=== PATIENT | male | born 1935 | race Caucasian/White ===

== ENCOUNTER → 2017-05-28 | Outpatient (CLI) | payer MEDICARE, OTHER ==
[~2017-05-28] MED LIST: AMLO5TAB2 PO; ASPI-621 PO; ATOR10TA9 PO; CETI-158 PO; CHOL200024 PO; ENAL20TA PO; FISH1CAP PO; IBUP200C8 PO; METF500T4 PO
[2017-05-28 08:59] LABS: HEMOGLOBIN 13.1 g/dL (13.7-18.0); WHITE BLOOD COUNT 6.4 x10^3/uL (3.4-10)
[2017-05-28 09:09] LABS: BLOOD UREA NITROGEN 22 mg/dL (7-18)
[2017-05-28 09:19] LABS: ASPARTATE AMINO TRANSFERASE 18 U/L (15-37)
[2017-05-28 10:07] LABS: HIV 1&2 ANTIBODY SCREEN Nonreactive (Nonreactive)
[2017-05-28 10:08] LABS: HIV-1 p24 ANTIGEN Nonreactive (Nonreactive)
== END | disposition home or self-care (01) ==
LOC: STAR 07:43
PROVIDERS: ATTEND Orthopaedic Surgery Orthopaedic Surgery of the Spine
DX: Z01.818 Encounter for other preprocedural examination (principal); R94.31 Abnormal electrocardiogram [ECG] [EKG]; M48.02 Spinal stenosis, cervical region; M54.12 Radiculopathy, cervical region; R79.1 Abnormal coagulation profile
CPT/HCPCS: 36415; 71020; 80053; 80074; 81003; 85025; 85610; 85651; 85730; 86703; 87899; 93005; G0435

== ENCOUNTER 2017-06-11 05:23 | Inpatient (IN) | payer MEDICARE, OTHER ==
[2017-05-28 08:12] VITALS: BP 152/76
[~2017-06-11] VITALS: Ht 172.7 cm; Wt 84.9 kg
[2017-06-11] MEDS ORDERED: LACTATED RINGERS 1,000 ML IV SCH (06:10)
[2017-06-11] MEDS ORDERED: LIDOCAINE 1%, 2ML SQ PRN (06:30)
[2017-06-11] MEDS ORDERED: BUPIVACAINE/PF 0.5% ONE (06:46)
[2017-06-11] MEDS ORDERED: THROMBIN 5,000 UNIT VIAL TP ONE (06:47)
[2017-06-11] MEDS ORDERED: EPINEPHRINE 1 MG/ML, 1ML ONE (06:47)
[2017-06-11] MEDS ORDERED: BUPIVACAINE/PF 0.25% ONE (06:47)
[2017-06-11] MEDS ORDERED: BACITRACIN 50,000 UNIT ONE (06:47)
[2017-06-11] MEDS ORDERED: LIDOCAINE/PF 1%, 30ML ONE (06:47)
[2017-06-11] MEDS ORDERED: PROPOFOL 50 ML ONE ×2 (07:13→08:55)
[2017-06-11] MEDS ORDERED: FENTANYL PF 100 MCG/2ML ONE (07:13)
[2017-06-11] MEDS ORDERED: MIDAZOLAM 1 MG/ML, 2ML ONE (07:13)
[2017-06-11] MEDS ORDERED: REMIFENTANIL 2 MG ONE (07:16)
[2017-06-11] MEDS ORDERED: CEFAZOLIN 1,000 MG ONE (08:55)
[2017-06-11] MEDS ORDERED: ONDANSETRON 2MG/ML, 2ML ONE (08:55)
[2017-06-11] MEDS ORDERED: PROPOFOL 10 MG/ML, 20ML ONE (08:55)
[2017-06-11] MEDS ORDERED: ROCURONIUM 10 MG/ML,10ML ONE (08:55)
[2017-06-11] MEDS ORDERED: DEXAMETHASONE 4 MG/ML, 1ML ONE (08:55)
[2017-06-11] MEDS ORDERED: SUCCINYLCHOLINE 20 MG/ML, 10ML ONE (08:55)
[2017-06-11] MEDS ORDERED: HYDROcodone/APAP 7.5-325MG/15ML UDC PO PRN (09:30)
[2017-06-11] MEDS ORDERED: hydrALAzine 20 MG/ML, 1ML IV PRN (09:30)
[2017-06-11] MEDS ORDERED: LABETALOL 5MG/ML, 20ML IV PRN ×2 (09:30→13:30)
[2017-06-11] MEDS ORDERED: HYDROmorphone 1 MG/ML, 1ML IV PRN (09:30)
[2017-06-11] MEDS ORDERED: DIAZEPAM 5 MG/ML, 2ML IVPush PRN (09:30)
[2017-06-11] MEDS ORDERED: ALBUTEROL SULFATE 2.5 MG/3 ML NPPB PRN (09:30)
[2017-06-11] MEDS ORDERED: ACETAMINOPHEN 325 MG TABLET PO PRN (09:30)
[2017-06-11] MEDS ORDERED: MIDAZOLAM 1 MG/ML, 2ML IV PRN (09:30)
[2017-06-11] MEDS ORDERED: PROMETHAZINE 25 MG/ML, 1ML IV PRN (09:30)
[2017-06-11] MEDS ORDERED: FENTANYL PF 100 MCG/2ML IV PRN (09:30)
[2017-06-11] MEDS ORDERED: METOPROLOL 1 MG/ML, 5ML IV PRN (09:30)
[2017-06-11] MEDS ORDERED: EPHEDRINE 50 MG/ML, 1ML IVPush PRN (09:30)
[2017-06-11] MEDS ORDERED: OXYcodone 5 MG/5 ML ORAL.SOL UDC PO PRN (09:30)
[2017-06-11] MEDS ORDERED: ONDANSETRON 2MG/ML, 2ML IVPush PRN (09:30)
[2017-06-11] MEDS ORDERED: ACETAMINOPHEN 650 MG/20.3 ML UDC ONE (11:23)
[2017-06-11] MEDS ORDERED: OXYcodone 5 MG/5 ML ORAL.SOL UDC ONE (11:24)
[2017-06-11 12:50] VITALS: BP 138/74
[2017-06-11] MEDS ORDERED: HYDROcodone/APAP 5/325 TABLET PO PRN ×2 (13:00→17:00)
[2017-06-11] MEDS ORDERED: DIAZEPAM 5 MG/ML, 2ML IV PRN ×2 (13:30→19:30)
[2017-06-11] MEDS ORDERED: HYDROcodone/APAP 10/325 MG TABLET PO PRN ×2 (13:30→17:30)
[2017-06-11] MEDS ORDERED: PROMETHAZINE 25 MG SUPP PR PRN (13:30)
[2017-06-11] MEDS ORDERED: DIAZEPAM 5 MG TABLET PO PRN ×2 (13:30→19:30)
[2017-06-11] MEDS ORDERED: PROMETHAZINE 25 MG/ML, 1ML IM PRN (13:30)
[2017-06-11] MEDS ORDERED: DIPHENHYDRAMINE 50 MG CAPSULE PO PRN (13:30)
[2017-06-11] MEDS ORDERED: DIPHENHYDRAMINE 50 MG/ML, 1ML IM PRN (13:30)
[2017-06-11] MEDS ORDERED: MAGNESIUM HYDROXIDE 8%, 30ML UDC PO PRN (13:30)
[2017-06-11] MEDS ORDERED: HYDROmorphone 2 MG/ML, 1ML IM PRN (13:30)
[2017-06-11] MEDS ORDERED: BISACODYL 10 MG SUPP PR PRN (13:30)
[2017-06-11] MEDS ORDERED: DIPHENHYDRAMINE 50 MG/ML, 1ML IVPush PRN (13:30)
[2017-06-11] MEDS: DEXAMETHASONE 4 MG/ML, 1ML IV SCH ×2 (15:08→22:07)
[2017-06-11] MEDS: CEFAZOLIN PMX 1GM/50ML 50 ML IVPB SCH (16:22)
[2017-06-11] MEDS ORDERED: DIAZEPAM 5 MG TABLET ONE (17:20)
[2017-06-11] MEDS: D5%-0.9% NACL+KCL 20MEQ 1,000 ML IV SCH (17:28)
[2017-06-11 19:52] VITALS: BP 152/85
[2017-06-11] MEDS: INSULIN ASPART 100 UNITS/ML, PEN SQ-INSULIN SCH (21:35)
[2017-06-11] MEDS: AMLODIPINE 5 MG TABLET PO SCH (22:07)
[2017-06-11] MEDS: ENALAPRIL 20MG TABLET PO SCH (22:07)
[2017-06-11 23:44] VITALS: BP 140/76
[2017-06-12] MEDS: CEFAZOLIN PMX 1GM/50ML 50 ML IVPB SCH ×2 (00:35→08:05)
[2017-06-12] MEDS: D5%-0.9% NACL+KCL 20MEQ 1,000 ML IV SCH ×2 (01:33→10:47)
[2017-06-12 03:17] VITALS: BP 149/81
[2017-06-12 05:23] LABS: BLOOD UREA NITROGEN 16 mg/dL (7-18)
[2017-06-12 07:38] VITALS: BP 147/83
[2017-06-12] MEDS: INSULIN ASPART 100 UNITS/ML, PEN SQ-INSULIN SCH (07:45)
[2017-06-12] MEDS ORDERED: SENNA/DOCUSATE TABLET PO SCH (09:00)
[2017-06-12] MEDS ORDERED: CETIRIZINE 10 MG TABLET PO SCH (09:00)
[2017-06-12] MEDS ORDERED: ATORVASTATIN 10 MG TABLET PO SCH (09:00)
[2017-06-12 09:34] VITALS: BP 142/76
[2017-06-12] MEDS: AMLODIPINE 5 MG TABLET PO SCH (09:36)
[2017-06-12] MEDS: ENALAPRIL 20MG TABLET PO SCH (09:36)
[2017-06-12 13:56] VITALS: BP 153/77
[2017-06-12] MEDS ORDERED: HYDR-3245 PO (16:16)
== END 2017-06-12 16:57 | disposition home or self-care (01) | DRG 473 ==
LOC: ORIP 05:23 → 4NOR 12:44
PROVIDERS: ADMIT Orthopaedic Surgery Orthopaedic Surgery of the Spine; ATTEND Orthopaedic Surgery Orthopaedic Surgery of the Spine
PROC: 0RB30ZZ Excision of Cervical Vertebral Disc, Open Approach (ICD-10-PCS; 2017-06-11)
PROC: 4A11X4G Monitoring of Peripheral Nervous Electrical Activity, Intraoperative, External Approach (ICD-10-PCS; 2017-06-11)
PROC: 0RG20K0 Fusion of 2 or more Cervical Vertebral Joints with Nonautologous Tissue Substitute, Anterior Approach, Anterior Column, Open Approach (ICD-10-PCS; principal; 2017-06-11 07:30)
DX: M47.22 Other spondylosis with radiculopathy, cervical region (principal); M48.02 Spinal stenosis, cervical region; Z79.899 Other long term (current) drug therapy; M1A.9XX0 Chronic gout, unspecified, without tophus (tophi); I10 Essential (primary) hypertension; N40.0 Benign prostatic hyperplasia without lower urinary tract symptoms; E78.5 Hyperlipidemia, unspecified
CPT/HCPCS: 36415; 72040; 80048; 82962; 95938; 95941; C1713; J0171; J0690; J1100; J1815; J2250; J2405; J2704; J3010; J3360; J3490; C1762; J0330; J3480; J7120

== ENCOUNTER 2018-11-29 12:10 | Observation (INO) | payer MEDICARE, OTHER ==
[~2018-11-29] VITALS: Ht 172.7 cm; Wt 90.0 kg
[~2018-11-29 12:10] MED LIST changes: +AMLO-150 PO; -AMLO5TAB2 PO; -ASPI-621 PO; +ASPI81TA45 PO; +HYDR-3245 PO; +METF500T17 PO; -METF500T4 PO
[2018-11-29 12:28] VITALS: BP 141/79
[2018-11-29] MEDS ORDERED: GABA300C10 PO (12:55)
[2018-11-29] MEDS ORDERED: OXYB5TAB7 PO (12:55)
[2018-11-29] MEDS ORDERED: METH4TAB6 PO (12:55)
[2018-11-29] MEDS ORDERED: THROMBIN 5,000 UNIT VIAL TP ONE (13:13)
[2018-11-29] MEDS ORDERED: BACITRACIN 50,000 UNIT ONE (13:13)
[2018-11-29] MEDS ORDERED: BUPIVACAINE/PF 0.25% ONE (13:13)
[2018-11-29] MEDS ORDERED: EPINEPHRINE 1 MG/ML, 1ML ONE (13:13)
[2018-11-29 13:22] LABS: BASOPHILS # (AUTO) 0.04 x10^3/uL (0-0.1); BASOPHILS % (AUTO) 1 % (0-1); EOSINOPHILS # (AUTO) 0.19 x10^3/uL (0-0.4); EOSINOPHILS % (AUTO) 3 % (1-7); LYMPHOCYTES # (AUTO) 2.42 x10^3/uL (1-3.4); LYMPHOCYTES % (AUTO) 32 % (22-44); MD NO; MEAN CORPUSCULAR HEMOGLOBIN 29.9 pg (27.5-34.5); MEAN CORPUSCULAR HGB CONC 33.1 g/dL (33.2-36.2); MEAN CORPUSCULAR VOLUME 90.5 fL (81-97); MEAN PLATELET VOLUME 7.8 fL (7.4-10.4); MONOCYTES # (AUTO) 0.56 x10^3/uL (0.2-0.8); MONOCYTES % (AUTO) 7 % (2-9); NEUTROPHILS # (AUTO) 4.35 x10^3/uL (1.8-6.8); NEUTROPHILS % (AUTO) 58 % (42-75); PLATELET COUNT 381 x10^3/uL (130-400); RED BLOOD COUNT 4.29 x10^6/uL (4.38-5.82); RED CELL DISTRIBUTION WIDTH 13.7 % (9.4-14.8)
[2018-11-29 13:34] LABS: ANION GAP 8 mmol/L (5-15); CALCIUM 9.3 mg/dL (8.5-10.1); CHLORIDE 106 mmol/L (98-107); CREATININE 1.32 mg/dL (0.7-1.3)
[2018-11-29] MEDS ORDERED: KETAMINE 10 MG/ML, 20ML ONE (14:17)
[2018-11-29] MEDS ORDERED: PROPOFOL 10 MG/ML, 20ML ONE (14:26)
[2018-11-29] MEDS ORDERED: CEFAZOLIN 1,000 MG ONE (14:26)
[2018-11-29] MEDS ORDERED: ROCURONIUM 10MG/ML,5ML ONE (14:26)
[2018-11-29] MEDS ORDERED: PHENYLEPHRINE 10 MG/ML ONE (14:26)
[2018-11-29] MEDS ORDERED: ONDANSETRON 2MG/ML, 2ML ONE (14:26)
[2018-11-29] MEDS ORDERED: FENTANYL PF 100 MCG/2ML ONE (14:26)
[2018-11-29] MEDS ORDERED: DEXAMETHASONE 4 MG/ML, 1ML ONE (14:26)
[2018-11-29] MEDS ORDERED: SUGAMMADEX 200 MG/2 ML IVPush ONE (14:26)
[2018-11-29] MEDS ORDERED: BUPIVACAINE/PF 0.25% INFIL ONE ×2 (15:09→15:10)
[2018-11-29] MEDS ORDERED: HYDROmorphone 1 MG/ML, 1ML INJ IVPush PRN (16:00)
[2018-11-29] MEDS ORDERED: MAGNESIUM HYDROXIDE 8%, 30ML UDC PO PRN (16:00)
[2018-11-29] MEDS ORDERED: BISACODYL 10 MG SUPP PR PRN (16:00)
[2018-11-29] MEDS ORDERED: PHARMACY MAY ADJ FOR RENAL FX MC PRN (16:00)
[2018-11-29] MEDS ORDERED: MEPERIDINE/PF 100 MG/ML IM PRN (16:00)
[2018-11-29] MEDS ORDERED: DIPHENHYDRAMINE 50 MG/ML, 1ML IVPush PRN (16:00)
[2018-11-29] MEDS ORDERED: HYDROcodone/APAP 10/325 MG TABLET PO PRN (16:00)
[2018-11-29] MEDS ORDERED: OXYcodone/APAP 5/325MG TABLET PO PRN (16:00)
[2018-11-29] MEDS: GABAPENTIN 300 MG CAPSULE PO SCH ×2 (16:00→21:44)
[2018-11-29] MEDS ORDERED: ONDANSETRON 2MG/ML, 2ML IVPush PRN (16:00)
[2018-11-29] MEDS ORDERED: TIZANIDINE 4MG TABLET PO PRN (16:00)
[2018-11-29] MEDS ORDERED: PROMETHAZINE 25 MG/ML, 1ML IM PRN (16:00)
[2018-11-29] MEDS ORDERED: OXYcodone 5 MG/5 ML ORAL.SOL UDC ONE (16:05)
[2018-11-29] MEDS ORDERED: HYDROmorphone 2 MG/ML, 1ML IVPush PRN (16:30)
[2018-11-29] MEDS ORDERED: FENTANYL PF 100 MCG/2ML IV PRN (16:30)
[2018-11-29] MEDS ORDERED: hydrALAzine 20 MG/ML, 1ML IV PRN (16:30)
[2018-11-29] MEDS ORDERED: ONDANSETRON 2MG/ML, 2ML IV PRN (16:30)
[2018-11-29] MEDS ORDERED: OXYcodone 5 MG/5 ML ORAL.SOL UDC PO PRN (16:30)
[2018-11-29] MEDS ORDERED: PROMETHAZINE 25 MG/ML, 1ML IV PRN (16:30)
[2018-11-29] MEDS: NS + 20MEQ KCL 1,000 ML IV SCH (17:22)
[2018-11-29 19:45] VITALS: BP 139/76
[2018-11-29] MEDS ORDERED: OXYBUTYNIN CHLORIDE 5 MG TABLET PO SCH (21:00)
[2018-11-29] MEDS: SODIUM CHLORIDE FLUSH 10ML SYR IVF SCH (21:45)
[2018-11-29] MEDS: ENALAPRIL 20MG TABLET PO SCH (21:45)
[2018-11-29] MEDS: CETIRIZINE 10 MG TABLET PO SCH (21:45)
[2018-11-29] MEDS: metFORMIN 500 MG TABLET PO SCH (21:45)
[2018-11-29] MEDS: AMLODIPINE 5 MG TABLET PO SCH (21:45)
[2018-11-29] MEDS: CEFAZOLIN PMX 1GM/50ML 50 ML IVPB SCH (22:18)
[2018-11-30 03:59] VITALS: BP 136/68
[2018-11-30] MEDS: NS + 20MEQ KCL 1,000 ML IV SCH ×2 (04:25→15:13)
[2018-11-30] MEDS: CEFAZOLIN PMX 1GM/50ML 50 ML IVPB SCH (06:25)
[2018-11-30 06:43] VITALS: BP 132/67
[2018-11-30] MEDS: AMLODIPINE 5 MG TABLET PO SCH (08:33)
[2018-11-30] MEDS: ENALAPRIL 20MG TABLET PO SCH (08:33)
[2018-11-30] MEDS: GABAPENTIN 300 MG CAPSULE PO SCH (08:33)
[2018-11-30] MEDS: CETIRIZINE 10 MG TABLET PO SCH (08:34)
[2018-11-30] MEDS: metFORMIN 500 MG TABLET PO SCH (08:34)
[2018-11-30] MEDS: SODIUM CHLORIDE FLUSH 10ML SYR IVF SCH (08:34)
[2018-11-30] MEDS ORDERED: SENNA/DOCUSATE TABLET PO SCH (09:00)
[2018-11-30] MEDS ORDERED: ATORVASTATIN 10 MG TABLET PO SCH (09:00)
[2018-11-30] MEDS ORDERED: STOOL SOFTENER PO (10:48)
[2018-11-30] MEDS ORDERED: HYDR-3237 PO (10:52)
[2018-11-30 13:34] VITALS: BP 113/60
[2018-11-30 16:10] VITALS: BP 117/69
== END 2018-11-30 16:20 | disposition home or self-care (01) ==
LOC: OR 12:10 → 4NOR 12:11 → OR 15:49 → 4NOR 15:49
PROVIDERS: ADMIT Neurological Surgery; ATTEND Neurological Surgery
DX: M51.16 Intervertebral disc disorders with radiculopathy, lumbar region (principal); M21.371 Foot drop, right foot; E11.22 Type 2 diabetes mellitus with diabetic chronic kidney disease; I12.9 Hypertensive chronic kidney disease with stage 1 through stage 4 chronic kidney disease, or unspecified chronic kidney disease; N18.9 Chronic kidney disease, unspecified; N40.0 Benign prostatic hyperplasia without lower urinary tract symptoms; E78.00 Pure hypercholesterolemia, unspecified; Z79.82 Long term (current) use of aspirin; Z79.84 Long term (current) use of oral hypoglycemic drugs; Z79.899 Other long term (current) drug therapy
CPT/HCPCS: 36415; 63030; 80048; 85025; 96365; 96366; 97162; 97166; G0378; J0171; J0690; J1100; J2370; J2405; J2704; J3010; J3480; J3490

== ENCOUNTER → 2020-01-25 | Outpatient (CLI) | payer MEDICARE, OTHER ==
[~2020-01-25] MED LIST changes: +ASPI-496 PO; +CHOL10003 PO; +CLOB15GE TP; +GABA300C10 PO; +HYDR-3237 PO; +METH4TAB6 PO; +OXYB5TAB10 PO; +STOOL SOFTENER PO
[2020-01-25 11:56] LABS: BASOPHILS # (AUTO) 0.02 x10^3/uL (0-0.1); BASOPHILS % (AUTO) 0 % (0-1); EOSINOPHILS # (AUTO) 0.11 x10^3/uL (0-0.4); EOSINOPHILS % (AUTO) 1 % (1-7); LYMPHOCYTES # (AUTO) 2.15 x10^3/uL (1-3.4); LYMPHOCYTES % (AUTO) 28 % (22-44); MD NO; MEAN CORPUSCULAR HEMOGLOBIN 29.2 pg (27.5-34.5); MEAN CORPUSCULAR HGB CONC 32.5 g/dL (33.2-36.2); MEAN CORPUSCULAR VOLUME 89.9 fL (81-97); MEAN PLATELET VOLUME 8.2 fL (7.4-10.4); MONOCYTES # (AUTO) 0.54 x10^3/uL (0.2-0.8); MONOCYTES % (AUTO) 7 % (2-9); NEUTROPHILS # (AUTO) 4.95 x10^3/uL (1.8-6.8); NEUTROPHILS % (AUTO) 64 % (42-75); PLATELET COUNT 316 x10^3/uL (130-400); RED CELL DISTRIBUTION WIDTH 13.6 % (9.4-14.8)
[2020-01-25 12:03] LABS: INTERNATIONAL NORMALIZED RATIO 0.95 (0.93-1.1); PROTHROMBIN TIME 10.1 Seconds (9.6-11.5)
[2020-01-25 12:04] LABS: ALANINE AMINOTRANSFERASE 41 U/L (12-78); ANION GAP 10 mmol/L (5-15); CALCIUM 9.3 mg/dL (8.5-10.1); CHLORIDE 105 mmol/L (98-107); CREATININE 1.43 mg/dL (0.7-1.3)
[2020-01-25 12:07] LABS: ALKALINE PHOSPHATASE 76 U/L (45-117); BILIRUBIN,TOTAL 0.4 mg/dL (0.2-1.0); TOTAL PROTEIN 7.4 g/dL (6.4-8.2)
[2020-01-25 12:37] LABS: MICROSCOPIC INDICATED
== END | disposition home or self-care (01) ==
LOC: STAR 10:38
PROVIDERS: ATTEND Neurological Surgery
DX: Z01.818 Encounter for other preprocedural examination (principal); I45.10 Unspecified right bundle-branch block; M43.16 Spondylolisthesis, lumbar region
CPT/HCPCS: 36415; 71046; 80053; 81001; 85025; 85610; 85730; 87086; 93005